=== PATIENT | male | born 1985 | race Caucasian/White ===

== ENCOUNTER 2024-01-31 12:27 | Emergency (ER) | payer MEDICAID ==
[~2024-01-31] VITALS: Ht 175.2 cm; Wt 72.6 kg
[~2024-01-31 12:27] MED LIST: ANAPROX DS550 MG PO
[2024-01-31] MEDS ORDERED: AMOXICILLIN500 M3 PO (13:48)
[2024-01-31] MEDS ORDERED: Motrin,Rufen400 MG PO (13:48)
[2024-01-31] MEDS ORDERED: TYLENOL EXTRA500 MG PO (13:48)
== END 2024-01-31 13:59 | disposition home or self-care (01) ==
LOC: ED 12:27
DX: J02.0 Streptococcal pharyngitis (principal)